=== PATIENT | female | born 2005 | race Two or more races ===

== ENCOUNTER 2024-07-28 11:48 | Emergency (ER) | payer MEDICAID, OTHER ==
[~2024-07-28] VITALS: Ht 162.6 cm; Wt 72.0 kg
[2024-07-28 13:32] VITALS: BP 125/70; PULSE 77; RESP 16; TEMP 98.3; O2SAT 96
[2024-07-28 13:36] LABS: Urine Bacteria None Seen /hpf (None Seen)
[2024-07-28 14:26] LABS: Urine Blood TRACE /uL (Negative); Urine Clarity Clear (Clear); Urine Color Light-Yellow (Yellow); Urine Mucus FEW (None Seen); Urine Protein, UAD Negative (Negative); Urine Specific Gravity 1.027 (1.001-1.035); Urine Squamous Epithelial Cell FEW /hpf (<5); Urine Urobilinogen Normal (Negative); Urine WBC 1 /hpf (0 - 5); Urine pH 6.5 (5.0-9.0)
--- NOTE | 2024-07-28 14:36 | DVH ---
CLINICAL INDICATION: LBP TECHNIQUE: 3 radiographic views of the lumbar spine were obtained. Comparison: None FINDINGS/IMPRESSION: 5 [id number] lumbar-type vertebrae. Mild levoconvex curvature of the lumbar spine. Mild straigh tening of the lumbar lordosis. The vertebral body heights are maintained. No evidence of acute trauma tic fractures or spondylolisthesis. Moderate amount of fecal material within the visualized colon.
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
[2024-07-28] MEDS: methylPREDNISolone SOD SUCC 125 MG/2 ML VL IM ONE (15:46)
[2024-07-28] MEDS: KETOROLAC TROMETH 30 MG/ML 1ML VIAL IM ONE (15:46)
[2024-07-28] MEDS ORDERED: IBUP-1456 PO (15:48)
[2024-07-28] MEDS ORDERED: PRED20TA2 PO (15:48)
== END 2024-07-28 15:49 | disposition home or self-care (01) ==
LOC: ER 11:48
DX: M54.16 Radiculopathy, lumbar region (principal)
CPT/HCPCS: 72100; 81001; 81025; 96372; 99284; J1885; J2919

== ENCOUNTER 2024-11-05 13:42 | Emergency (ER) | payer MEDICAID ==
[~2024-11-05] VITALS: Ht 162.6 cm; Wt 72.9 kg
[~2024-11-05 13:42] MED LIST: IBUP-1456 PO; PRED20TA2 PO
[2024-11-05 14:39] VITALS: BP 139/76; PULSE 96; RESP 16; TEMP 97.7; O2SAT 100
[2024-11-05] MEDS: KETOROLAC TROMETH 60MG/2ML VIAL IM ONE (14:45)
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
[2024-11-05] MEDS ORDERED: IBUP-1456 PO (15:50)
[2024-11-05] MEDS ORDERED: METH-1182 PO (15:50)
== END 2024-11-05 16:03 | disposition home or self-care (01) ==
LOC: ER 13:42
DX: S16.1XXA Strain of muscle, fascia and tendon at neck level, initial encounter (principal); S39.012A Strain of muscle, fascia and tendon of lower back, initial encounter; V43.52XA Car driver injured in collision with other type car in traffic accident, initial encounter; X58.XXXA Exposure to other specified factors, initial encounter; Y93.I9 Activity, other involving external motion; Y92.488 Other paved roadways as the place of occurrence of the external cause; Y99.8 Other external cause status
CPT/HCPCS: 72040; 72100; 96372; 99284; J1885